=== PATIENT | male | born 1945 | race Caucasian/White ===

== ENCOUNTER 2020-10-01 13:31 | Emergency (ER) | payer MEDICARE, OTHER ==
[2020-10-01] MEDS ORDERED: ADENOSINE 6 MG/2 ML VIAL IVP STA ×2 (13:45→13:55)
[2020-10-01 13:50] LABS: BASOPHILS # (AUTO) 0.1 10^3/uL (0.0-0.1); BASOPHILS % (AUTO) 0.5 %; EOSINOPHILS # (AUTO) 0.1 10^3/uL (0.0-0.7); EOSINOPHILS % (AUTO) 0.6 %; HCT - HEMATOCRIT 45.3 % (42.0-52.0); HGB - HEMOGLOBIN 15.9 g/dL (14.0-18.0); LYMPHOCYTES # (AUTO) 1.5 10^3/uL (1.5-3.5); LYMPHOCYTES % (AUTO) 13.9 %; MEAN CORPUSCULAR HEMOGLOBIN 31.8 pg (27.0-31.0); MEAN CORPUSCULAR HGB CONC 35.1 g/dL (32.0-36.0); MEAN CORPUSCULAR VOLUME 90.6 fL (80.0-94.0); MEAN PLATELET VOLUME 9.4 fL (7.4-11.4); MONOCYTES # (AUTO) 0.6 10^3/uL (0.0-1.0); MONOCYTES % (AUTO) 5.4 %; NEUTROPHILS # (AUTO) 8.6 10^3/uL (1.5-6.6); PLT - PLATELET COUNT 248 10^3/uL (130-450); RED CELL DISTRIBUTION WIDTH 12.3 % (12.0-15.0); WHITE BLOOD COUNT 10.9 x10^3/uL (4.8-10.8)
--- NOTE | 2020-10-01 14:07 | XRAY Report ---
PROCEDURE: Chest 1 View X-Ray INDICATIONS: Chest pain TECHNIQUE: One view of the chest was acquired. COMPARISON: None FINDINGS: Surgical changes and devices: None. Lungs and pleura: No pleural effusions or pneumothorax. Lungs are clear. Mediastinum: Mediastinal contours appear normal. Heart size is normal. Bones and chest wall: No suspicious bony lesions. Overlying soft tissues appear unremarkable. IMPRESSION: No acute cardiopulmonary process demonstrated radiographically. Reviewed by: Demond Rodriguez MD on 10/01/2020 2:06 PM PDT Approved by: Demond Rodriguez MD on 10/01/2020 2:06 PM PDT Station ID: [id number]
[2020-10-01] MEDS ORDERED: ESMOLOL 100 MG/10 ML VIAL IVP STA (14:08)
[2020-10-01 14:16] LABS: ALBUMIN 4.3 g/dL (3.2-5.5); ALBUMIN/GLOBULIN RATIO 1.6 (1.0-2.2); BILIRUBIN,TOTAL 0.8 mg/dL (0.2-1.0); CALCIUM 9.4 mg/dL (8.5-10.3); CREATININE 0.9 mg/dL (0.6-1.2); POTASSIUM 3.9 mmol/L (3.5-5.0)
--- NOTE | 2020-10-01 14:26 | ED Physician Documentation ---
History of Present Illness - Stated complaint Stated Complaint: HEART PALPITATIONS/DIZZINESS - Chief complaint Chief Complaint: Cardiac - History obtained from History obtained from: Patient, Family - History of Present Illness Timing: Today Pain level max: 0 Pain level now: 0 - Additonal information Additional information: 75-year-old male presents to the emergency department complaining of palpitations for the past hour or so. Has never had this occurred to him before. No chest pain. No shortness of breath. Did feel mildly lightheaded. Nothing makes it better or worse. No medication changes. No travel. No cough. No congestion. Review of Systems Ten Systems: 10 systems reviewed and negative Constitutional: denies: Fever, Chills GI: denies: Vomiting, Diarrhea Skin: denies: Rash Musculoskeletal: denies: Neck pain, Back pain Neurologic: denies: Headache PD PAST MEDICAL HISTORY - Past Medical History Past Medical History: Yes Cardiovascular: High cholesterol Respiratory: None Neuro: None Endocrine/Autoimmune: None GI: None : None HEENT: None Psych: None Musculoskeletal: None Derm: None - Past Surgical History Past Surgical History: Yes General: Appendectomy Ortho: Arthroscopic surgery HEENT: Tonsil/Adenoidectomy - Present Medications Home Medications: Ambulatory Orders Medication Instructions Recorded Confirmed Ezetimibe [Zetia] 5 mg DAILY 05/01/14 10/01/20 - Allergies Allergies/Adverse Reactions: Allergies Allergy/AdvReac Type Severity Reaction Status Date / Time No Known Drug Allergies Allergy Verified 10/01/20 13:43 - Social History Does the pt smoke?: No Smoking Status: Never smoker Does the pt drink ETOH?: Yes ETOH Use: Wine Does the pt have substance abuse?: No - Immunizations Immunizations are current?: Yes PD ED PE NORMAL - Vitals Vital signs reviewed: Yes - General General: Alert and oriented X 3, No acute distress, Well developed/nourished - HEENT HEENT: PERRL, Moist mucous membranes - Neck Neck: Supple, no meningeal sign - Cardiac Cardiac: Other (Tachycardic, regular) - Respiratory Respiratory: No respiratory distress, Clear bilaterally - Abdomen Abdomen: Soft, Non tender, Non distended - Derm Derm: Warm and dry - Extremities Extremities: No edema, No calf tenderness / cord - Neuro Neuro: Alert and oriented X 3 - Psych Psych: Normal mood, Normal affect Results - Vitals Vitals: Vital Signs - 24 hr 10/01/20 10/01/20 10/01/20 13:36 14:00 14:02 Temperature 36.2 C L Heart Rate 175 H 160 H 72 Respiratory 16 Rate Blood Pressure 125/95 H 123/87 H 142/82 H O2 Saturation 98 10/01/20 15:16 Temperature Heart Rate 66 Respiratory 15 Rate Blood Pressure 115/78 O2 Saturation 97 Oxygen O2 Source Room air - EKG (time done) 1333 Rate: Rate (enter#) (166) Rhythm: SVT [place]: Normal QRS: Normal Ischemia: Normal ST segments 1448 Rate: Rate (enter#) (70) Rhythm: NSR [place]: Normal Intervals: Normal [place] QRS: Normal Ischemia: Normal ST segments Computer interpretation: Agree with computer - Labs Labs: Laboratory Tests 10/01/20 10/01/20 10/01/20 13:40 13:40 13:40 WBC 10.9 H RBC 5.00 Hgb 15.9 Hct 45.3 MCV 90.6 MCH 31.8 H MCHC 35.1 RDW 12.3 Plt Count 248 MPV 9.4 Neut # (Auto) 8.6 H Lymph # (Auto) 1.5 [place] # (Auto) 0.6 Eos # (Auto) 0.1 Baso # (Auto) 0.1 Absolute Nucleated RBC 0.00 Nucleated RBC % 0.0 Sodium 136 Potassium 3.9 Chloride 105 Carbon Dioxide 26 Anion Gap 5.0 L BUN 19 Creatinine 0.9 Estimated GFR (MDRD) 82 L Glucose 117 H Calcium 9.4 Total Bilirubin 0.8 AST 25 ALT 22 Alkaline Phosphatase 44 Troponin I High Sens 15.8 Total Protein 7.0 Albumin 4.3 Globulin 2.7 Albumin/Globulin Ratio 1.6 Lipase 44 PD MEDICAL DECISION MAKING - ED course Complexity details: reviewed results, re-evaluated patient, considered differential, d/w patient ED course: Patient with SVT. He did break with adenosine, but quickly went back into SVT. Adenosine was repeated at 12 mg. Same thing occurred. Given a dose of esmolol and converted back to sinus. Did not reconvert back to SVT. Has never had this before. Copies of EKG were given to him to take with him to cardiology. No significant lab abnormalities. Patient counseled regarding signs and sym ptoms for which I believe and urgent re-evaluation would be necessary. Patient with good understanding of and agreement to plan and is comfortable going home at this time This document was made in part using voice recognition software. While efforts are made to proofread this document, sound alike and grammatical errors may occur. Departure - Departure Disposition: 01 Home, Self Care Clinical Impression: SVT (supraventricular tachycardia) Condition: Good Instructions: ED Tachycardia Pat PSVT Follow-Up: CHARITY MERCER MD [Primary Care Provider] - Within 1 week Comments: Follow up with your doctor for further care. You should have a referral to a boxing inspector from your doctor. Make sure to take copies of your EKG with you. Return if you worsen. Discharge Date/Time: 10/01/20 15:23
[2020-10-01 15:17] VITALS: BP 115/78
== END 2020-10-01 15:23 | disposition home or self-care (01) ==
LOC: ED 13:31
DX: I47.1 Supraventricular tachycardia (principal)
CPT/HCPCS: 36415; 71045; 80053; 83690; 84484; 85025; 93005; 96374; 96375; 99284; J0153